=== PATIENT | male | born 1995 | race Caucasian/White ===

== ENCOUNTER 2020-09-13 09:39 | Outpatient (REF) | payer OTHER, SELFPAY ==
[2020-09-13 09:57] LABS: IDNOW Serial# 55D5AD1C
[2020-09-13 09:58] LABS: COVID-19 Test Negative (Negative)
== END 2020-09-13 09:40 | disposition home or self-care (01) ==
LOC: HO.EMPCOV 09:39
PROVIDERS: Visit Provider Internal Medicine
DX: Z11.52 Encounter for screening for COVID-19 (principal)
CPT/HCPCS: 36415; 87635; C9803

== ENCOUNTER 2020-10-26 10:08 | Outpatient (REF) | payer OTHER, SELFPAY ==
[2020-10-26 10:33] LABS: COVID-19 Test Negative (Negative); IDNOW Serial# 55D5AD1C
== END 2020-10-26 10:09 | disposition home or self-care (01) ==
LOC: HO.EMPCOV 10:08
PROVIDERS: Visit Provider Internal Medicine
DX: Z20.822 Contact with and (suspected) exposure to COVID-19 (principal)
CPT/HCPCS: 36415; 87635; C9803

== ENCOUNTER 2021-03-01 08:55 | Outpatient (REF) | payer MEDICAID, SELFPAY ==
[2021-03-01 09:29] LABS: COVID-19 Test Negative (Negative)
== END 2021-03-01 08:56 | disposition home or self-care (01) ==
LOC: HO.LAB 08:55
PROVIDERS: Visit Provider Internal Medicine
DX: Z20.822 Contact with and (suspected) exposure to COVID-19 (principal)
CPT/HCPCS: 36415; 87635; C9803

== ENCOUNTER 2021-06-05 10:33 | Outpatient (REF) | payer MEDICAID, SELFPAY | END 2021-06-05 10:34 | disposition home or self-care (01) | LOC: HO.LAB 10:33 | PROVIDERS: Visit Provider Internal Medicine | DX: Z20.822 Contact with and (suspected) exposure to COVID-19 (principal) | CPT/HCPCS: C9803; U0003; U0005 ==

== ENCOUNTER 2021-11-08 11:17 | Outpatient (REF) | payer MEDICAID, SELFPAY ==
[2021-11-08 12:10] LABS: COVID-19 Test Negative (Negative); IDNOW Serial# 08D9AD1C
== END 2021-11-08 11:18 | disposition home or self-care (01) ==
LOC: HO.LAB 11:17
PROVIDERS: Visit Provider Internal Medicine
DX: Z20.822 Contact with and (suspected) exposure to COVID-19 (principal)
CPT/HCPCS: 87635; C9803

== ENCOUNTER 2021-11-24 11:44 | Outpatient (REF) | payer MEDICAID, SELFPAY ==
[2021-11-24 12:15] LABS: COVID-19 Test Positive (Negative)
== END 2021-11-24 11:45 | disposition home or self-care (01) ==
LOC: HO.LAB 11:44
PROVIDERS: Visit Provider Internal Medicine
DX: Z20.822 Contact with and (suspected) exposure to COVID-19 (principal)
CPT/HCPCS: 87635; C9803

== ENCOUNTER 2023-02-09 09:41 | Emergency (ER) | payer MEDICAID, SELFPAY ==
--- NOTE | ~2023-02-09 | XR_ITS ---
EXAMINATION: XR LUMBOSACRAL SPINE CLINICAL INFORMATION: Back pain. COMPARISON: None available. TECHNIQUE: Three views of the lumbosacral spine. FINDINGS: L5-S1 is transitional with partial sacralization of L5, left greater than right. There is normal lumbar lordosis. Minimal grade 1 retrolisthesis is seen at L4-L5. The vertebral bodies are intact. The soft tissues are unremarkable. XR/XR lumbar spine 2-3V IMPRESSION: Transitional L5-S1. Minimal grade 1 retrolisthesis at L4-L5 may be degenerative in nature. No acute abnormality.
--- NOTE | ~2023-02-09 | XR_ITS ---
EXAMINATION: XR SACROILIAC JOINTS CLINICAL INFORMATION: Back pain. COMPARISON: None available. TECHNIQUE: 3 views of the sacroiliac joints FINDINGS: Bones and soft tissues are normal. No fracture. Alignment is anatomic. Sacroiliac joint spaces are well-maintained without erosions or surrounding sclerosis. XR/XR sacroiliac joint min 3V IMPRESSION: Unremarkable sacroiliac joints.
[2023-02-09 09:51] VITALS: BP 128/83; PULSE 87; RESP 18; TEMP 36.9; O2SAT 98; BMI 36.6
--- NOTE | 2023-02-09 10:32 | ED.BACK ---
HPI - Back Pain/Injury General Chief Complaint: Back Pain/Injury Stated Complaint: lower back inj Time Seen by Provider: 02/09/23 10:08 Source: patient and RN notes reviewed Mode of arrival: ambulatory Limitations: no limitations History of Present Illness HPI Narrative: This is a 27-year-old male presenting to the emergency department for evaluation of right lower back pain since yesterday. Patient reports that while he was playing yesterday he was pivoting backwards and immediately felt a pop in his low back. He states that he had pain initially however was able to continue playing for 10-15 minutes afterwards. He has had increasing pain throughout the night yesterday and woke up this morning with significant pain in his low back. Patient has been able to ambulate. No urinary or bowel incontinence or retention. No saddle anesthesia. He has been taking ibuprofen for his symptoms without any relief. Denies any fevers, chills, chest pain, shortness breath, abdominal pain, nausea, vomiting, or diarrhea. He states that he has a history of back problems due to his work however no known diagnoses. No other complaints or concerns at this time. MD elicited complaint: back pain and back injury Pertinent past history: prior back pain Onset (ago): day(s) Timing: constant and progressively worsening Severity: moderate Similar Symptoms Previously: No Quality: aching Location: right lower back Radiation: none Exacerbating factors: movement, sitting upright and lifting Relieving factors: immobilization Context: playing sports Associated symptoms: denies other symptoms Treatments prior to arrival: NSAIDS Work related injury: No Related Data Previous Rx's Medication Instructions Recorded acetaminophen 325 mg tablet 650 mg PO Q6H PRN pain #30 tabs 02/09/23 (Tylenol) cyclobenzaprine 5 mg tablet 5 mg PO TID PRN muscle spasm #14 02/09/23 tabs ibuprofen 600 mg tablet 600 mg PO Q6H PRN pain #45 tabs 02/09/23 prednisone 20 mg tablet 40 mg PO DAILY 5 days #10 tabs 02/09/23 Allergies Allergy/AdvReac Type Severity Reaction Status Date / Time shrimp [SHRIMP] Allergy Intermediate RASH Verified 02/09/23 09:55 Review of Systems Review of Systems: Yes all other systems are reviewed and are negative Constitutional: Constitutional: Reports as per [facility] Past Medical History Attestation statement: The following information was validated with the patient. Social History Social History Advance Directives: No Advance Directives Information Provided: No Physical Exam Vital Signs: Vital Signs: Last Vital Signs Temp 98.4 F 02/09/23 09:51 Pulse 87 02/09/23 09:51 Resp 18 02/09/23 09:51 BP 128/83 02/09/23 09:51 Pulse Ox 98 02/09/23 09:51 O2 Del Method Room Air 02/09/23 09:51 BMI result Body Mass Index 36.6 Const: General: cooperative, comfortable and no acute distress Orientation/consciousness: patient oriented x3 Limitations: no limitations HEENT: Head: Yes normal to inspection, Yes normocephalic and Yes atraumatic Ears: hearing grossly normal bilaterally General nose exam: Normal external nose present Face and sinus: Yes normal facial exam Mouth: Normal oral and palatal mucosa present, oropharynx normal and moist mucous membranes Throat: Yes posterior oropharynx normal Eyes: General: appearance normal, both eyes and all related structures Eyelids: Yes eyelids normal Conjunctivae: conjunctivae normal Sclerae: sclerae normal Pupils: Equal, round and reactive pupils present EOM: EOMs intact bilaterally Neck: Neck: Yes normal visual inspection, Yes full ROM and Yes no lymphadenopathy Lymphatic: no lymphadenopathy noted Chest: Chest palpation & inspection: normal inspection of the chest Resp: Effort & Inspection: normal respiratory effort and able to speak in complete sentences Auscultation: clear to auscultation bilaterally, no crackles, no rales, no rhonchi and no wheezes Cardio: Rate: regular rate Rhythm: regular rhythm Heart sounds: S1 normal heart sound present and S2 normal heart sound present GI: Inspection: Yes normal to inspection : General: Yes no CVA tenderness Back/Spine/Pelvis: Other: No midline lumbar spine tenderness, no coccyx or sacral tenderness. No overlying erythema or edema. Tenderness to palpation along the right SI joint and right lower lumbar musculature. Positive straight leg raise on the right. Patellar reflexes 2+ bilaterally. Back: no CVA tenderness Cervical Spine: normal cervical lordosis Thoracic/Lumbar Spine: thoracic and lumbar spine normal to inspection Skin: General skin exam: no rashes or lesions noted Trauma: no lacerations or abrasions Wounds: no wounds Neuro: General: patient oriented x3 and moves all extremities Cranial nerves: Yes Equal, round and reactive pupils present Extrem: General: Yes normal to inspection Right upper extremity: normal to inspection Left upper extremity: normal to inspection Right lower extremity: normal to inspection Left lower extremity: normal to inspection Course Reevaluation(s) Reevaluation #1: Pt last took ibuprofen 800mg this morning, cancelled toradol, will medicate with tylenol PO. Time: 10:50 Reevaluation #2: SI joint x-ray unremarkable. Lumbar spine with minimal grade 1 retrolisthesis at L4-L5 may be degenerative in nature. No acute abnormality. Discussed these results with patient. Patient has no red flag back symptoms, will treat with prednisone, muscle relaxants, and NSAIDs and Tylenol. Advised the patient needs to have a primary care physician for further management and treatment of this. Given return precautions if any new or worsening symptoms occur. Patient understands and agrees with plan. Patient stable for discharge. Time: 11:23 Medications Administered Discontinued Medications Generic Name Dose Route Start Last Admin Trade Name Freq PRN Reason Stop Dose Admin Acetaminophen 975 mg 02/09/23 10:48 02/09/23 10:53 Acetaminophen 325 Mg Tablet PO 02/09/23 10:49 975 mg ONCE ONE Administration Medical Decision Making Medical Decision Making MDM Narrative: 27-year-old male presenting to the emergency department for evaluation of back pain since yesterday. Pt has TTP over right SI joint and musculature. No midline spine TTP. Patellar reflexes 2+ bilaterally. This patient presents with back pain most consistent with SI joint pain/lumbar sprain/strain. Differential diagnoses includes lumbago versus musculoskeletal spasm / strain versus sciatica. No back pain red flags on history or physical. Presentation not consistent with malignancy (lack of history of malignancy, lack of B symptoms), fracture (no trauma, no bony tenderness to palpation), cauda equina syndrome (no bowel or urinary incontinence/retention, no saddle anesthesia, no distal weakness), pyelonephritis (afebrile, no CVAT, no urinary symptoms). Plan: Xray lumbar spine, SI joint xray. Differential Diagnosis Differential Diagnoses: The differential diagnosis associated with the presentation includes Lumbar sprain, strain, sciatica, SI joint pain, cauda equina syndrome - unlikely Discharge Plan Discharge Clinical Impression: Back pain, Retrolisthesis of vertebrae Patient Disposition: Home, Self-Care Instructions: Acute Low Back Pain (ED), Spondylolisthesis (ED) Additional Instructions: Please take prescribed medication as directed. Your xrays did not show any broken bones, but did show a mild slippage, to one of your lumbar discs. It is unclear whether or not you have had this before your back injury. Please be advised that muscle relaxants can cause drowsiness, do not drink alcohol or drive while taking this. You need to find a primary care physician as you may need to go to physical therapy for further management of your back pain and symptoms. If any new or worsening symptoms occur including but not limited to loss of bowel or bladder control, numbness or tingling into your groin, please return for re-evaluation. Gentle heat or ice, stretching, massage can also help with your symptoms. Prescriptions: New ibuprofen 600 mg tablet 600 mg PO Q6H PRN (Reason: pain) Qty: 45 0RF acetaminophen [Tylenol] 325 mg tablet 650 mg PO Q6H PRN (Reason: pain) Qty: 30 0RF cyclobenzaprine 5 mg tablet 5 mg PO TID PRN (Reason: muscle spasm) Qty: 14 0RF prednisone 20 mg tablet 40 mg PO DAILY 5 Days Qty: 10 0RF Referrals: [facility] [Primary Care Provider] - Stand Alone Forms: Work/School Release
[2023-02-09] MEDS: Acetaminophen 325 MG TABLET 975 MG PO (10:53)
== END 2023-02-09 11:34 | disposition home or self-care (01) ==
PROVIDERS: Emergency Provider Emergency Medicine
DX: M43.16 Spondylolisthesis, lumbar region (principal); M54.50 Low back pain, unspecified
CPT/HCPCS: 72100; 72202; 99283